=== PATIENT | female | born 1985 | race Two or more races ===

== ENCOUNTER 2023-02-15 06:09 | Emergency (ER) | payer OTHER ==
[~2023-02-15] VITALS: Ht 157.5 cm; Wt 64.4 kg
--- NOTE | 2023-02-15 06:21 | NUR ---
COVID ANTIGEN SWAB COLLECTED AND SENT TO LAB
--- NOTE | 2023-02-15 06:24 | NUR ---
BRIAN FOR MEDICAL CLEARANCE TO [facility] FOR DUI. AMB WITH STEADY GAIT
--- NOTE | 2023-02-15 07:26 | NUR ---
PROVIDED PT WITH URINE CUP; AWAITING URINE SAMPLE
[2023-02-15 08:19] LABS: CALCIUM, SERUM 8.3 mg/dL (8.5-10.1); CREATININE 0.5 mg/dL (0.6-1.3); POTASSIUM 3.7 mmol/L (3.5-5.1)
[2023-02-15 08:22] LABS: BASOPHILS % (AUTO) 0.4 % (0.0-2.0); EOSINOPHILS % (AUTO) 0.6 % (0.0-6.0); HEMATOCRIT 30 % (33-45); HEMOGLOBIN 9.8 g/dL (11.5-14.8); LYMPHOCYTES # (AUTO) 1.3 K/uL (0.8-4.8); MEAN CORPUSCULAR HGB CONC 33 g/dl (31.0-36.0); MEAN CORPUSCULAR VOLUME 80 fL (82-100); MONOCYTES # (AUTO) 0.4 K/uL (0.1-1.30); MONOCYTES % (AUTO) 10.7 % (2.0-12.0); NEUTROPHILS # (AUTO) 2.3 K/uL (1.8-8.9); NEUTROPHILS % (AUTO) 57.3 % (43.0-81.0); PLATELET COUNT (AUTO) 358 K/uL (150-450); RED BLOOD CELL COUNT(AUTO) 3.77 MIL/uL (4.0-5.2); WHITE BLOOD COUNT (AUTO) 4.1 K/uL (4.3-11.0)
--- NOTE | 2023-02-15 09:29 | NUR ---
MEDICALLY CLEARED. D/C TO [facility] IN STABLE CONDITION.
[2023-02-15 09:30] VITALS: BP 120/82
== END 2023-02-15 09:31 ==
LOC: ER 06:11
DX: Z02.83 Encounter for blood-alcohol and blood-drug test (principal); Z60.2 Problems related to living alone; Z02.89 Encounter for other administrative examinations; Z20.822 Contact with and (suspected) exposure to COVID-19; R06.02 Shortness of breath; V40.9XXA Unspecified car occupant injured in collision with pedestrian or animal in traffic accident, initial encounter; Y93.89 Activity, other specified; Y92.89 Other specified places as the place of occurrence of the external cause; Y99.8 Other external cause status
CPT/HCPCS: 99284; 87426; 93005; 85025; 80048; 36415; 84484; C9803